=== PATIENT | female | born 1940 | race Caucasian/White ===

== ENCOUNTER 2017-07-13 18:37 | Observation (INO) | payer OTHER ==
[~2017-07-13] VITALS: Ht 162.6 cm; Wt 132.9 kg
[~2017-07-13 18:37] MED LIST: ALBUTEROL SULF8.5 GM IH; AMBIEN; ASPIR 8181 MG; ASPIRIN; ASPIRIN81 M1 PO; ATENOLOL; ATENOLOL50 MG PO; CARAFATE1 GM PO; CIPRO500 MG PO; CYCLOBENZAPRINE10 MG PO; CYMBALTA20 MG PO; DEXILANT; DEXILANT60 MG PO; DOXYCYCLINE HY100 MG PO; ENOXAPARIN40 MG/0.4 SQ; FENTANYL1 EAC1 TOP; GABAPENTIN100 MG PO; HEMOCYTE PLUS1 EACH PO; HYDROCHLOROTHIAZIDE; LEVEMIR; LISINOPRIL2.5 MG PO; LOVASTATIN; LOVASTATIN40 MG PO; METRONIDAZOLE500 MG PO; NATEGLINIDE120 MG; NEXIUM40 MG; NEXIUM40 MG PO; NIFEDICAL XL30 MG PO; NORCO; NORCO 10MG-325MG1 EA PO; NORCO 5-325 TA1 EACH PO; NOVOLOG MI100 UNIT/1 SQ; OMEPRAZOLE40 MG PO; OXYCODONE HCL5 MG PO; PAROXETINE HCL40 MG PO; PROAIR HFA INH8.5 GM INH; QVAR INH; REGLAN10 MG PO; ROBAXIN-750750 MG PO; STARLIX; STARLIX120 MG PO; TEMAZEPAM30 MG; ULTRAM 50MG50 MG PO; VITAMIN D1000 UNI1 PO; Z.0.PAXIL40 MG PO; ZOFRAN8 MG PO; ZOLPIDEM TARTRA10 MG PO
[2017-07-13] MEDS ORDERED: SODIUM CHLORIDE 0.9% 500ML 500 ML IV STA (19:27)
[2017-07-13] MEDS ORDERED: ONDANSETRON HCL INJ 2 MG/ML VIAL IV STA (19:27)
[2017-07-13] MEDS ORDERED: MORPHINE SULFATE 4 MG/ML SYR IV STA (19:27)
[2017-07-13] MEDS ORDERED: ACETAMINOPHEN 325 MG TAB PO ONE (19:30)
[2017-07-13] MEDS ORDERED: IBUPROFEN 600 MG TAB PO ONE (19:36)
[2017-07-13] MEDS ORDERED: DIATRIZOATE MEGL/DIATRIZOA SOD 30 ML BTL PO ONE ×2 (19:39→19:45)
[2017-07-13] MEDS ORDERED: MORPHINE SULFATE 2 MG/ML SYR IV ONE (19:45)
[2017-07-13 19:56] LABS: BASOPHILS % 0.4 % (0.0-1.0); EOSINOPHILS # (AUTO) 0.2 (0.0-0.4); EOSINOPHILS % 1.6 % (0.0-6.0); HEMATOCRIT 33.6 % (34.2-44.1); HEMOGLOBIN 11.5 g/dL (12.0-16.0); LYMPHOCYTES % 20.8 % (18.0-39.1); MEAN CORPUSCULAR HEMOGLOBIN 31.7 pg (28-32); MEAN CORPUSCULAR HGB CONC 34.2 g/dL (31-35); MEAN CORPUSCULAR VOLUME 92.6 fL (81-99); MONOCYTES # (AUTO) 0.8 (0.2-0.8); MONOCYTES % 8.7 % (4.4-11.3); NEUTROPHILS # (AUTO) 6.5 (2.1-6.9); PLATELET COUNT 185 x10e3/uL (140-360); RED BLOOD COUNT 3.63 x10e6/uL (3.6-5.1); RED CELL DISTRIBUTION WIDTH 14.9 % (11.7-14.4)
--- NOTE | 2017-07-13 20:11 | Diagnostic Imaging Report ---
EXAMINATION: CHEST SINGLE (PORTABLE) INDICATION: \S\fever \[id number] \S\1955 COMPARISON: Chest radiograph from 02/07/2013 and 12/08/2015 FINDINGS: AP view TUBES and LINES: Tubes and lines are unchanged. Neurostimulator overlying the mid thoracic spine. LUNGS: Lungs are well inflated. Improved bibasilar atelectasis. There is no evidence of pneumonia or pulmonary edema. PLEURA: No pleural effusion or pneumothorax. HEART AND MEDIASTINUM: Persistent widening of the mediastinum may be due to technique. BONES AND SOFT TISSUES: No acute osseous lesion. Soft tissues are unremarkable. UPPER ABDOMEN: No free air under the diaphragm. IMPRESSION: Improvement bibasilar atelectasis. No new consolidations. Persistent widening of the mediastinum. Recommend upright PA and lateral chest x-ray one feasible. Signed by: Dr. Malena Camarena M.D. on 07/13/2017 8:07 PM
[2017-07-13 20:13] LABS: ALANINE AMINOTRANSFERASE 11 IU/L (0-55); ALBUMIN 2.8 g/dL (3.5-5.0); ALBUMIN/GLOBULIN RATIO 0.7 (0.8-2.0); ALKALINE PHOSPHATASE 75 IU/L (40-150); AMYLASE 13 U/L (25-125); BLOOD UREA NITROGEN 17 mg/dL (7-26); BUN/CREATININE RATIO 21 (6-25); CALCIUM 8.7 mg/dL (8.4-10.2); CARBON DIOXIDE 30 mmol/L (22-29); CHLORIDE 98 mmol/L (98-107); CREATINE KINASE 38 IU/L (29-168); CREATININE, SERUM 0.82 mg/dL (0.57-1.11); EST GLOMERULAR FILTRATION RATE > 60 ML/MIN (60-); GLUCOSE 122 mg/dL (74-118); LIPASE 4 U/L (8-78); SODIUM 136 mmol/L (136-145)
[2017-07-13 20:16] LABS: B-TYPE NATRIURETIC PEPTIDE2 115.7 pg/mL (0-100)
[2017-07-13 20:44] LABS: BILIRUBIN,URINE NEGATIVE (NEGATIVE); CLARITY,URINE CLEAR (CLEAR); COLOR,URINE YELLOW (YELLOW); KETONES,URINE NEGATIVE (NEGATIVE); LEUKOCYTE ESTERASE ,URINE NEGATIVE (NEGATIVE); NITRITE,URINE NEGATIVE (NEGATIVE); PROTEIN,URINE DIPSTICK NEGATIVE (NEGATIVE); URINE UROBILINOGEN 0.2 mg/dL (0.2 - 1)
[2017-07-13 20:59] LABS: EPITHELIAL CELLS,URINE FEW /LPF
--- NOTE | 2017-07-13 21:19 | Diagnostic Imaging Report ---
EXAM: CT ABDOMEN AND PELVIS with IV CONTRAST DATE: 07/13/2017 7:27 PM Time stamp on Exam: 2043 hours INDICATION: Back \E\Abdominal pain COMPARISON: CT of the abdomen and pelvis April 06, 2015 TECHNIQUE: The abdomen and pelvis were scanned using a multidetector helical scanner. Coronal and sagittal reformations were obtained. Routine protocol performed. IV Contrast: 100 cc at 7370 Oral Contrast: Gastrografin CTDIvol has been reviewed. It is below the limits set by the Radiation Protocol Committee (RPC). FINDINGS: LOWER THORAX: No consolidations LIVER: No masses BILIARY: Cholecystectomy. Mild dilation of the bile ducts, likely secondary to reservoir effect and age. SPLEEN: No masses PANCREAS: Pancreatic atrophy. ADRENALS: No nodules KIDNEYS: Symmetric perfusion. No enhancing masses. No hydronephrosis. Simple cyst measuring 2 cm superior pole of the right kidney. Simple cyst measuring 1.7 cm in the inferior pole of the right kidney. GI TRACT: Small hiatal hernia. Surgical sutures around the proximal stomach. Sigmoid colon diverticulosis. No bowel obstruction. No evidence of appendicitis. VESSELS: Moderate atherosclerotic changes of the abdominal aorta and branches without aneurysm. PERITONEUM/RETROPERITONEUM: No free air or fluid LYMPH NODES: No lymphadenopathy REPRODUCTIVE ORGANS: The uterus and ovaries are not visualized. BLADDER: Unremarkable SOFT TISSUES: Surgical changes of ventral hernia repair without evidence of recurrent hernia. Partially visualized intrathecal device with generator in the left buttock. BONES: No suspicious bone lesions. Advanced degenerative changes of the thoracolumbar spine. IMPRESSION: Moderate sliding hiatal hernia. Otherwise, no CT findings to explain patient's symptoms. Signed by: Dr. Nicole Estrada M.D. on 07/13/2017 9:15 PM
[2017-07-13] MEDS ORDERED: TEMAZEPAM15 MG PO (22:21)
[2017-07-13] MEDS ORDERED: OMEPRAZOLE40 MG PO (22:22)
[2017-07-13] MEDS ORDERED: DEXTROSE 50% SYRINGE 50 ML IV PRN ×2 (22:30)
[2017-07-13] MEDS: SODIUM CHLORIDE 0.9% 1000ML 1,000 ML IV SCH (22:31)
--- OUTSIDE RECORDS SUMMARY | 2017-07-13 22:34 | XMS REPORT ---
Author Author [facility] Address Unknown Phone Unavailable Care Team Providers Care [employer] Name Role Phone UGO ABAD Unavailable Unavailable Problems This patient has no known problems. Allergies, Adverse Reactions, Alerts This patient has no known allergies or adverse reactions. Medications This patient has no known medications. Results Test Description Test Time Test Comments Text Results Atomic Results Result Comments CHEST SINGLE (PORTABLE) [address] [address] Patient Name: ANNIKA OROZCO MR #: [id number] : 1940 Age/Sex: 76/F Req #: [id number] Adm Physician: Ordered by: UGO ABAD MD Report #: [id number] Location: ER Room/Bed: Procedure: [id number] DX/CHEST SINGLE (PORTABLE) Exam Date: 07/13/17 Exam Time: 1954 REPORT STATUS: Signed EXAMINATION: CHEST SINGLE (PORTABLE) INDICATION: COMPARISON: Chest radiograph from 02/07/2013 and 12/08/2015 FINDINGS: AP view TUBES and LINES: Tubes and lines are unchanged. Neurostimulator overlying the mid thoracic spine. LUNGS: Lungs are well inflated. Improved bibasilar atelectasis. There is no evidence of pneumonia or pulmonary edema. PLEURA: No pleural effusion or pneumothorax. HEART AND MEDIASTINUM: Persistent widening of the mediastinum may be due to technique. BONES AND SOFT TISSUES: No acute osseous lesion. Soft tissues are unremarkable. UPPER ABDOMEN: No free air under the diaphragm. IMPRESSION: Improvement bibasilar atelectasis. No new consolidations. Persistent widening of the mediastinum. Recommend upright PA and lateral chest x-ray one feasible. Signed by: Dr. Chantell Pretty M.D. on 07/13/2017 8:07 PM Dictated By: CHANTELL PRETTY MD 06 Transcribed By: LISANDRO on 07/13/172006 COPY TO: UGO ABAD MD CT ABDOMEN/PELVIS W [place] [address] Patient Name: ANNIKA OROZCO MR #: [id number] : 1940 Age/Sex: 76/F Req #: [id number] Adm Physician: Ordered by: UGO ABAD MD Report #: [id number] Location: ER Room/Bed: Procedure: [id number] CT/CT ABDOMEN/PELVIS W Exam Date: 07/13/17 Exam Time: 2039 REPORT STATUS: Signed EXAM: CT ABDOMEN AND PELVIS with IV CONTRAST DATE: 07/13/2017 7:27 PM Time stamp on Exam: 2043 hours INDICATION: Back E Abdominal pain COMPARISON: CT of the abdomen and pelvis April 06, 2015 TECHNIQUE: The abdomen and pelvis were scanned using a multidetector helical scanner. Coronal and sagittal reformations were obtained. Routine protocol performed. IV Contrast: 100 cc at 7370 Oral Contrast: Gastrografin CTDIvol has been reviewed. It is below the limits set by the Radiation Protocol Committee (RPC). FINDINGS: LOWER THORAX: No consolidations LIVER: No masses BILIARY: Cholecystectomy. Mild dilation of the bile ducts, likely secondary to reservoir effect and age. SPLEEN : No masses PANCREAS: Pancreatic atrophy. ADRENALS: No nodules KIDNEYS : Symmetric perfusion. No enhancing masses. No hydronephrosis. Simple cyst measuring 2 cm superior pole of the right kidney. Simple cyst measuring 1.7 cm in the inferior pole of the right kidney. GI TRACT: Small hiatal hernia. Surgical sutures around the proximal stomach. Sigmoid colon diverticulosis. No bowel obstruction. No evidence of appendicitis. VESSELS: Moderate atherosclerotic changes of the abdominal aorta and branches without aneurysm. PERITONEUM/RETROPERITONEUM: No free air or fluid LYMPH NODES: No lymphadenopathy REPRODUCTIVE ORGANS: The uterus and ovaries are not visualized. BLADDER: Unremarkable SOFT TISSUES: Surgical changes of ventral hernia repair without evidence of recurrent hernia. Partially visualized intrathecal device with generator in the left buttock. BONES : No suspicious bone lesions. Advanced degenerative changes of the thoracolumbar spine. IMPRESSION: Moderate sliding hiatal hernia. Otherwise, no CT findings to explain patient's symptoms. Signed by: Dr. Silvio Estrada M.D. on 07/13/2017 9:15 PM Dictated By: SILVIO ESTRADA MD 14 Transcribed By: LISANDRO on 07/13/172114 COPY TO: UGO ABAD MD
[2017-07-13] MEDS ORDERED: IOPAMIDOL 370 MG/ML 200 ML INFUS..BTL INJ ONE (22:53)
[2017-07-13] MEDS ORDERED: SODIUM CHLORIDE 0.9% 50ML 50 ML ONE (22:53)
[2017-07-13 23:11] VITALS: BP 129/60
[2017-07-14] VITALS (9 sets, daily range): BP systolic 128–177; BP diastolic 58–73
[2017-07-14] MEDS: ONDANSETRON HCL INJ 2 MG/ML VIAL IV PRN ×5 (00:03→21:02)
[2017-07-14] MEDS: MORPHINE SULFATE 2 MG/ML SYR IV PRN ×5 (00:03→21:02)
[2017-07-14] MEDS: INSULIN REGULAR, HUMAN 100 UNIT/1 ML 3ML VIAL SQ SCH ×4 (07:30→21:01)
[2017-07-14] MEDS: SODIUM CHLORIDE 0.9% 1000ML 1,000 ML IV SCH ×2 (07:47→17:00)
[2017-07-14] MEDS ORDERED: NATEGLINIDE 120 MG TAB PO SCH (11:30)
[2017-07-14] MEDS ORDERED: METHOCARBAMOL 750 MG TAB PO PRN (14:00)
[2017-07-14] MEDS ORDERED: METHOCARBAMOL 750 MG TAB PO SCH (14:00)
[2017-07-14] MEDS ORDERED: MELATONIN 5 MG TABLET PO PRN (14:00)
[2017-07-14] MEDS: LIDOCAINE 5% PATCH TP SCH (14:12)
[2017-07-14] MEDS: PANTOPRAZOLE SOD 40 MG TABEC PO SCH (14:24)
--- NOTE | 2017-07-14 15:23 | History and Physical ---
REASON FOR ADMISSION: Abdominal pain. HPI: This is a 76-year-old female, morbidly obese, with chronic back pain and chronic abdominal pain in which she sees appropriate consultants, pain management and GI respectively, comes in to the ED with complaints of abdominal pain. Patient reports that she has been having sharp epigastric pain ongoing for the last several days. She does report to me that this has been ongoing for the last 1 year. She does see an outpatient GI specialist. Her imaging studies here were found to be negative. Lab findings were found to be negative as well. Patient tolerated diet well this afternoon with no other issues. In relation to her back pain, she reports that this has been ongoing and sees a pain specialist as an outpatient and also gets injections. She does report that they stopped giving her injections due to the reason that the insurance is not paying. Patient is seen and evaluated at bedside on the medical floor, currently doing well, very comfortable on examination. REVIEW OF SYSTEMS: Pertinent positive: Back pain, abdominal pain. Pertinent negative: Denies any chest pain, palpitation, nausea, vomiting, diarrhea, dysuria, hematuria, frequency, urgency, lightheadedness, dizziness, headache, shortness of breath or any other complaints. The rest of the 14-point review of systems have been reviewed with the patient and are negative. ALLERGIES: PENICILLIN, TYLENOL, CODEINE, GABAPENTIN, SIMVASTATIN, TRAMADOL. PAST MEDICAL HISTORY: Diabetes type 2, CKD, obesity, hypertension, hyperlipidemia, major depression with anxiety, insomnia, chronic lower back pain which she sees pain management. SURGICAL HISTORY: Abdominal hernia repair, multiple abdominal wall hernias, hysterectomy, cholecystectomy, appendectomy, lower back surgery, abdominal wall abscess. FAMILY HISTORY: Hypertension, diabetes. SOCIAL HISTORY: No drugs. No alcohol. Does not smoke. Lives with her 2 children. PHYSICAL EXAMINATION: VITAL SIGNS: Temperature is 98.2, pulse 85, respiratory rate is 18, blood pressure 148/67, pulse ox 96% on room air. GENERAL: Not in acute distress. Alert and oriented times 3. Cooperative on exam. HEENT: Head: Normocephalic, atraumatic. Eyes: Pupils equal, round and reactive to light bilaterally. Extraocular movements are intact bilaterally. Throat: No evidence of any erythema or exudates in the posterior oropharynx. Has poor dentition. NECK: Supple with good range of motion. PULMONARY: Clear to auscultation bilaterally. No wheezing, no rales, no rhonchi. No crackles appreciated. CARDIOVASCULAR: Positive S1, S2. No murmurs, rubs, or gallops appreciated. ABDOMEN: Soft, nondistended, nontender to palpation. Bowel sounds present. MUSCULOSKELETAL: Strength is 5/5 throughout. No evidence of any musculoskeletal deficit on examination. No weakness appreciated. NEUROLOGIC: Cranial nerves II through XII are grossly intact. No evidence of any neurologic deficit on exam. SKIN: Intact. Warm to touch. Good capillary refill. PSYCHIATRIC: Normal affect and mood. EXTREMITIES: No edema. Good range of motion throughout. LAB FINDINGS: Show a white count 9.5, hemoglobin 11.5, hematocrit 33.6 and platelets of 185. Chemistry: Sodium 136, potassium 4, chloride 98, bicarb 30, anion gap 12, BUN 17, creatinine 0.8, glucose 122. Her -hour glucose 116, lactic acid 10 which was normal. Her LFTs were normal. Her lipase was normal. Amylase normal. Albumin is 2.8. BNP was 115. Troponin negative. Urinalysis negative. Microbiology, none. IMAGING STUDIES: CT abdomen and pelvis with IV contrast showed just a moderate sliding hiatal hernia but otherwise negative findings. Chest x-ray, no new consolidation. Otherwise negative chest x-ray. IMPRESSION: 1. Chronic abdominal pain, currently much improved, tolerating diet. 2. Chronic lower back pain. 3. Type 2 diabetes. 4. Chronic kidney disease. 5. Morbidly obese. 6. Hypertension. PLAN: At this time continue same home medications. Continue with same pain control. CT imaging was negative. She does have a moderate hiatal hernia but likely not causing any issues at this time. Her abdominal pain is very nonspecific. I feel like her underlying back pain is chronic leading to her abdominal pain which currently she is doing well. She is tolerating diet well with no nausea or vomiting. Will add tramadol for pain which she prefers instead. Will get PT and OT to evaluate her. Continue with regular diet for now. Decrease her IV fluids to 50 mL per hour. I am going to add lidocaine patch to her back to see if this will help with resolve. She was receiving injections in the back but due to the fact that the insurance was not paying, she has not received any injections. Otherwise, monitor overnight. Job#: [id number] DG
[2017-07-14] MEDS ORDERED: SUCRALFATE 1 GM/10 ML SUSP NG SCH (16:30)
[2017-07-14] MEDS: SUCRALFATE 1 GM TAB PO SCH ×2 (17:00→20:44)
[2017-07-14] MEDS: TRAMADOL HCL 50 MG TAB PO PRN (17:20)
[2017-07-14] MEDS ORDERED: GABAPENTIN 100 MG CAP PO SCH (21:00)
[2017-07-15] MEDS: MORPHINE SULFATE 2 MG/ML SYR IV PRN (01:21)
[2017-07-15] MEDS: ONDANSETRON HCL INJ 2 MG/ML VIAL IV PRN (01:21)
[2017-07-15 04:00] VITALS: BP 161/72
[2017-07-15 06:16] LABS: BASOPHILS % 0.4 % (0.0-1.0); EOSINOPHILS # (AUTO) 0.2 (0.0-0.4); EOSINOPHILS % 2.5 % (0.0-6.0); HEMATOCRIT 34.7 % (34.2-44.1); HEMOGLOBIN 11.5 g/dL (12.0-16.0); LYMPHOCYTES # (AUTO) 2.4 (1.0-3.2); LYMPHOCYTES % 25.9 % (18.0-39.1); MEAN CORPUSCULAR HEMOGLOBIN 31.3 pg (28-32); MEAN CORPUSCULAR HGB CONC 33.1 g/dL (31-35); MEAN CORPUSCULAR VOLUME 94.6 fL (81-99); MONOCYTES # (AUTO) 0.9 (0.2-0.8); MONOCYTES % 9.1 % (4.4-11.3); NEUTROPHILS # (AUTO) 5.7 (2.1-6.9); NEUTROPHILS % 61.4 % (38.7-80.0); PLATELET COUNT 184 x10e3/uL (140-360); RED BLOOD COUNT 3.67 x10e6/uL (3.6-5.1); RED CELL DISTRIBUTION WIDTH 14.9 % (11.7-14.4)
[2017-07-15 06:40] LABS: ANION GAP 12.6 mmol/L (8-16); BLOOD UREA NITROGEN 10 mg/dL (7-26); BUN/CREATININE RATIO 12 (6-25); CARBON DIOXIDE 28 mmol/L (22-29); CHLORIDE 103 mmol/L (98-107); CREATININE, SERUM 0.81 mg/dL (0.57-1.11); EST GLOMERULAR FILTRATION RATE > 60 ML/MIN (60-); GLUCOSE 116 mg/dL (74-118); POTASSIUM 3.6 mmol/L (3.5-5.1); SODIUM 140 mmol/L (136-145)
[2017-07-15] MEDS: SUCRALFATE 1 GM TAB PO SCH ×4 (07:30→16:30)
[2017-07-15 08:07] VITALS: BP 144/64
[2017-07-15] MEDS: PANTOPRAZOLE SOD 40 MG TABEC PO SCH (08:07)
[2017-07-15] MEDS: INSULIN REGULAR, HUMAN 100 UNIT/1 ML 3ML VIAL SQ SCH ×3 (08:54→17:05)
[2017-07-15 08:55] VITALS: BP 144/64
[2017-07-15] MEDS ORDERED: CHOLECALCIFEROL 1,000 UNIT TAB PO SCH (09:00)
[2017-07-15] MEDS ORDERED: LIDOCAINE 5% PATCH TP SCH (09:00)
[2017-07-15] MEDS ORDERED: ATENOLOL 50 MG TAB PO SCH (09:00)
[2017-07-15] MEDS ORDERED: PAROXETINE HCL 20 MG PO SCH (09:00)
[2017-07-15] MEDS ORDERED: ASPIRIN 81 MG CHEW TAB PO SCH (09:00)
[2017-07-15] MEDS ORDERED: LISINOPRIL 2.5 MG TAB PO SCH (09:00)
[2017-07-15] MEDS ORDERED: PAROXETINE HCL 20 MG TAB PO SCH (09:00)
[2017-07-15] MEDS: SODIUM CHLORIDE 0.9% 1000ML 1,000 ML IV SCH (10:37)
[2017-07-15] MEDS: LIDOCAINE 5% PATCH TP SCH (10:37)
[2017-07-15] MEDS ORDERED: NIFEDIPINE CR 30 MG TAB PO SCH (12:00)
[2017-07-15 12:10] VITALS: BP 197/90
[2017-07-15] MEDS: TRAMADOL HCL 50 MG TAB PO PRN (14:42)
[2017-07-15] MEDS ORDERED: HYDRALAZINE HCL 20 MG/ML VIAL IV SCH (16:15)
[2017-07-15 16:26] VITALS: BP 178/77
[2017-07-15 17:05] VITALS: BP 159/79
--- NOTE | 2017-07-15 18:53 | Discharge Summary ---
DISCHARGE DIAGNOSIS: 1. Chronic abdominal pain, very nonspecific, now resolved. 2. Chronic back pain in which she follows up with a pain specialist for years now. 3. Type 2 diabetes. 4. Chronic kidney disease. 5. Morbidly obese. 6. Hypertension. CONSULTANTS: None. VITAL SIGNS: Temperature is 98, pulse 68, respiratory rate is 18, pulse ox 97% on room air. LAB FINDINGS: Show white count 9.3, hemoglobin is 11.5, hematocrit is 34.7, MCV is 94, platelets of 184. Chemistry: Sodium 140, potassium 3.6, chloride 103, bicarb 20, anion gap of 12, BUN is 10, creatinine is 0.8, glucose 116, calcium is 9. Total bilirubin is 0.4. Her LFTs were normal. Her troponins were negative. Her albumin was 2.8. Her lipase was 4. Her amylase was 13. AST is 12. ALT is 11. Urinalysis negative. MICROBIOLOGY: None. IMAGING STUDIES: CT abdomen and pelvis showed a small hiatal hernia but otherwise no acute findings. Chest x-ray, no new consolidations, otherwise negative chest x-ray. HOSPITAL COURSE: This is a 76-year-old female, morbidly obese, chronic back pain. Comes in with nonspecific abdominal pain. Imaging studies were performed with CT abdomen and pelvis that showed a small hiatal hernia. Patient was tolerating diet with no complaints. She had no nausea, no vomiting. Patient tolerated diet, regular solid food, with no issues. Her abdominal pain resolved prior to discharge home. In relation to her chronic back pain, this has been ongoing for more than 4 years now. We added some lidocaine patches with much improvement. Patient's back pain is back to baseline with no other issues. Patient's blood pressure was slightly elevated while in the hospital and discharged on increased dose of lisinopril at 10 mg daily as well as nifedipine XL at 30 mg daily. On discharge her vital signs were stable, labs reviewed and stable. Patient seen, evaluated and examined thoroughly on the day of discharge. No other complaints. Patient verbalized understanding and agrees with plan of care to follow up accordingly as an outpatient with her primary care physician in 1 week. DISCHARGE MEDICATIONS: See med reconciliation form including nifedipine XL 30 mg daily, lisinopril 10 mg daily. DISPOSITION: Home. CONDITION: Stable. DIET: Heart-healthy. FOLLOWUP: With her primary care physician in 1 week for further management and care. In the event of any worsening symptoms, patient advised to come back to the ED for further evaluation. Discharge summary took greater than 35 minutes. BERTRAND KENNEY MD Job#: [id number] EV
== END 2017-07-15 17:50 | disposition home or self-care (01) ==
LOC: ER 18:37 → IMCU 22:30
PROVIDERS: ADMIT Internal Medicine; ATTEND Internal Medicine
DX: R10.84 Generalized abdominal pain (principal); E66.01 Morbid (severe) obesity due to excess calories; Z68.43 Body mass index [BMI] 50.0-59.9, adult; G89.29 Other chronic pain; Z88.6 Allergy status to analgesic agent; Z88.5 Allergy status to narcotic agent; Z88.0 Allergy status to penicillin; Z88.8 Allergy status to other drugs, medicaments and biological substances; E11.22 Type 2 diabetes mellitus with diabetic chronic kidney disease; N18.9 Chronic kidney disease, unspecified; I12.9 Hypertensive chronic kidney disease with stage 1 through stage 4 chronic kidney disease, or unspecified chronic kidney disease; K44.9 Diaphragmatic hernia without obstruction or gangrene
CPT/HCPCS: 36415 ×3; 71045; 74177; 80048; 80053; 81001; 82150; 82550; 82553; 82948 ×2; 83605; 83690; 83880; 84484; 85025 ×2; 93005; 97116; 97161; 99284; G0378 ×3; G8978; G8979; G8980; J0360; J2270 ×3; J2405 ×3; J7030 ×3; J7040; Q9967

== ENCOUNTER → 2017-08-08 | Outpatient (CLI) | payer OTHER ==
[~2017-08-08] MED LIST changes: +TEMAZEPAM15 MG PO
--- NOTE | 2017-08-08 19:23 | Diagnostic Imaging Report ---
Solid-phase gastric emptying study Reason for examination: 76 F with dysphagia The protocol used for this study is based on the Consensus Recommendations for Gastric Scintigraphy by the [employer] and the Society of Nuclear Medicine. Clinical information: The patient is diabetic; blood glucose this morning is 156 mg/dL. The patient has not had previous gastrointestinal surgery other than cholecystectomy in 1994.. Patient could not recall name of medication she takes for gastric motility. The patient has been fasting for at least 6 hours prior to this exam. Radiopharmaceutical: Tc-99m sulfur colloid 1 mCi Report: The radiopharmaceutical was added to 1/2 cup egg whites that were then prepared and served with 2 pieces of white bread toasted, 30 grams of jam and 4 ounces of water. The patient took the meal orally without difficulty. Images were obtained of the abdomen in the anterior and posterior projections at 10 minutes post the meal and at 1and 2 hours. Uptake was determined from the geometric mean of the anterior and posterior counts and the counts were corrected for decay of the radiolabel. The percent gastric retention of the labeled meal at: 1 hour was 27% (normal 30-90%) 2 hours was 19% (normal <60%; if <35%, study is normal) 3-hour and 4-hour measurements were not obtained because the gastric retention was less than 35% at 2 hours. Impression: The pattern of gastric emptying is rapid through the first hour and normal after 2 hours. Scan findings do not support the clinical diagnosis of gastroparesis. Signed by: Dr. Dee Kohler M.D. on 08/08/2017 7:19 PM
== END ==
LOC: NM 09:22
PROVIDERS: ATTEND Internal Medicine Gastroenterology
DX: R13.10 Dysphagia, unspecified (principal); E11.9 Type 2 diabetes mellitus without complications; I10 Essential (primary) hypertension; E66.9 Obesity, unspecified
CPT/HCPCS: 36415; 78264; 82948; A9541

== ENCOUNTER → 2017-08-10 | Day surgery (SDC) | payer OTHER ==
[~2017-08-10] MED LIST changes: +FENTANYL CITRATE/PF 100MCG/2 ML INJ ONE; +MIDAZOLAM HCL 2 MG/2 ML VIAL ONE; +PROPOFOL IV EMULSION 10 MG/ML 20 ML VIAL ONE
--- OUTSIDE RECORDS SUMMARY | 2017-08-10 07:36 | XMS REPORT | Continuity of Care Document ---
Author Author [facility] Organization [facility] Address [address] [place] [address] Phone Unavailable Care Team Providers Care Machine Stuffer Name Role Phone KEV CRANDALL MD PCP Insurance Providers Guarantor Annika Colunga Address [address] [place] [address] Email NONE Payer [employer] Policy Number [id number] Subscriber's Name Annika Colunga Relationship 18 Self / Same As Patient Group Number [id number] Group Name [employer] - [employer] Advantage Divis Effective Date 17 Advance Directives Directive Response Recorded Date/Time Does the patient have an advance directive? No 07/13/17 11:08pm If yes, is advance directive on file with [facility]? No 07/13/17 11:08pm If not on file with [facility] will patient provide a copy? Yes 07/13/17 11:08pm Do you have a Directive to Physician? No 07/13/17 7:24pm Do you have a Medical Power of Machine Attendant? No 07/13/17 7:24pm Do you have an out of hospital Do Not Resuscitate Order? No 07/13/17 7:24pm Do you have any special needs we should be aware of? No 07/13/17 7:24pm Do you have a support person here with you today? Yes 07/13/17 7:24pm Did patient receive Notice of Privacy Practices? Yes 07/13/17 7:24pm Did patient receive patient rights and responsibilities? Yes 07/13/17 7:24pm Problems Medical Problem Onset Date Status Confusion 12/08/2015 Acute Seroma, infected, postoperative 05/01/2015 Acute Seroma, postoperative 05/01/2015 Acute TIA (transient ischemic attack) 05/08/2015 Acute UTI (urinary tract infection) 12/08/2015 Acute Wound infection 05/01/2015 Acute Medications Current Home Medications Medication Dose Units Route Directions Days Qty Instructions Start Date Aspirin (Aspir 81) 81 Mg Tablet.dr Daily Atenolol 50 Mg Tablet 50 Mg Oral Daily Cholecalciferol (Vitamin D3) (Vitamin D) 1,000 Unit Tablet 5,000 Unit Oral Daily 30 Tab Gabapentin 100 Mg Capsule 100 Mg Oral Bedtime Insuln Asp Prt/Insulin Aspart (Novolog Mix 70-30 Flexpen Syrn) 100 Unit/1 Ml Insuln.pen 100 Unit Sub-Q Three Times A Day Lisinopril 2.5 Mg Tablet 5 Mg Oral Daily 30 Tab Methocarbamol (Robaxin-750) 750 Mg Tablet 750 Mg Oral Every 4 Hours as needed for Pain Omeprazole 40 Mg Capsule.dr 40 Mg Oral Daily Oxycodone Hcl 5 Mg Tablet 5 Mg Oral Twice A Day as needed for Pain Paroxetine Hcl 40 Mg Tablet 20 Mg Oral Daily Temazepam 15 Mg Capsule 15 Mg Oral Bedtime as needed for Insomnia Past Home Medications Medication Directions Ordered Status Albuterol Sulfate (Proair Hfa Inhaler*) 8.5 Gm Inh, Inhalation Every 4 Hours as needed Discontinued Ambien , Bedtime Discontinued Aspirin 81 Mg Tablet, 81 Mg Oral Daily Discontinued Aspirin , Daily Discontinued Atenolol , Daily Discontinued Ciprofloxacin Hcl (Cipro) 500 Mg Tablet, 500 Mg Oral Every 12 Hours Discontinued Cyclobenzaprine Hcl 10 Mg Tablet, 10 Mg Oral Three Times A Day Discontinued Dexilant , Daily Discontinued Duloxetine Hcl (Cymbalta) 20 Mg Capcr, 60 Mg Oral Daily Discontinued Enoxaparin Sodium 40 Mg/0.4 Ml Disp.syrin, 40 Mg Sub-Q Rt Daily Discontinued Esomeprazole Magnesium (Nexium) 40 Mg Capsule.dr, Daily Discontinued Esomeprazole Magnesium (Nexium) 40 Mg Capsule.dr, 40 Mg Oral Daily as needed Discontinued Fe Fumarate/Fa/Mv, Min Comb#15 (Hemocyte Plus Capsule) 1 Each Capsule, 1 Tab Oral Daily Discontinued Fentanyl 1 Each Patch.td72, 12 Mcg Topically Q72 Hrs Discontinued Hydrochlorothiazide , Daily Discontinued Hydrocodone Bit/Acetaminophen (Burton 5-325 Tablet) 1 Each Tablet, 1 Each Oral Every 4 Hours 12/21/14 Discontinued Levemir , Bedtime Discontinued Lovastatin 40 Mg Tablet, 40 Mg Oral Twice A Day Discontinued Lovastatin , Twice A Day Discontinued Metronidazole 500 Mg Tablet, 500 Mg Oral Three Times A Day Discontinued Nateglinide (Starlix) 120 Mg Tab, 120 Mg Oral Three Times A Day Discontinued Nifedipine (Nifedical Xl) 30 Mg Tab.er.24, 60 Mg Oral Daily Discontinued Burton , Three Times A Day Discontinued Omeprazole 40 Mg Capsule.dr, 40 Mg Oral Daily Discontinued Ondansetron Hcl (Zofran) 8 Mg Tablet, 8 Mg Oral Every 8 Hours as needed for Nausea 04/10/15 Discontinued Paroxetine Hcl (Paxil) 40 Mg Tablet, 40 Mg Oral Daily Discontinued Qvar , 80 Mcg Inhalation Twice A Day Discontinued Starlix , Three Times A Day Discontinued Sucralfate (Carafate) 1 Gm Tablet, 1 Gm Oral Before Meals And At Bedtime 11/16 Discontinued Temazepam 30 Mg Capsule, Qhs Discontinued Tramadol Hcl (Ultram 50MG*) 50 Mg Tab, 50 Mg Oral As Needed Discontinued Social History Social History Problem Response Recorded Date/Time Onset Date Status Hx Psychiatric Problems No 07/13/2017 11:08pm Not Applicable Not Applicable Hx Eating Disorder No 07/13/2017 11:08pm Not Applicable Not Applicable Hx Substance Use Disorder No 07/13/2017 11:08pm Not Applicable Not Applicable Hx Depression Yes 07/13/2017 11:08pm Not Applicable Not Applicable Hx Alcohol Use No 07/13/2017 11:08pm Not Applicable Not Applicable Hx Substance Use Treatment No 07/13/2017 11:08pm Not Applicable Not Applicable Hx Physical Abuse No 07/13/2017 11:08pm Not Applicable Not Applicable Smoking Status Start Date Stop Date Never Smoker Hospital Discharge Instructions No hospital discharge instruction information available. Plan of Care Discharge Date 07/15/17 5:50pm Disposition HOME, SELF-CARE Instructions/Education Provided Hiatal Hernia Prescriptions See Medication Section Additional Instructions/Education FOLLOW UP WITH PCP IN 1 WEEK Functional Status Query Response Date Recorded FUNCTIONAL STATUS ` July 14, 2017 3:40pm Assistive Devices Rolling Walker July 13, 2017 11:11pm Ambulation Ability Standby Assistance 1 person assist July 13, 2017 11:11pm Toileting Ability Independent July 13, 2017 11:11pm Allergies, Adverse Reactions, Alerts Allergen Type Severity Reaction Status Last Updated Penicillin Allergy Mild RASH Active 07/13/17 Codeine Allergy Mild N/V Active 07/13/17 Acetaminophen Allergy Unknown HALLUCINATIONS Active 07/13/17 Simvastatin Allergy Unknown Active 07/13/17 Tramadol Allergy Unknown CRAWLING SENSATIONS Active 07/14/17 Gabapentin Allergy Unknown DIZZINESS Active 07/14/17 Immunizations No immunization information available. Vital Signs Acute Vital Signs Vital Response Date/Time Temperature (Fahrenheit) 97.7 degrees F (97.6 - 99.5) 07/15/2017 4:26pm Pulse Pulse Rate (adult) 65 bpm (60 - 90) 07/15/2017 4:26pm Respiratory Rate 18 bpm (12 - 24) 07/15/2017 4:26pm Blood Pressure 159/79 mm Hg 07/15/2017 5:05pm Height 5 ft 4 in 07/13/2017 6:40pm Weight 293 lb 07/13/2017 6:40pm Body Mass Index 50.3 kg/m^2 07/13/2017 11:08pm Results Laboratory Results Test Name Result Units Flags Reference Collection Date/Time Result Date/ Time Comments White Blood Count 9.34 x10e3/uL 4.8-10.8 07/15/2017 5:30am 07/15/2017 6 :31am Red Blood Count 3.67 x10e6/uL 3.6-5.1 07/15/2017 5:30am 07/15/2017 6: 31am Hemoglobin 11.5 g/dL L 12.0-16.0 07/15/2017 5:30am 07/15/2017 6:31am Hematocrit 34.7 % 34.2-44.1 07/15/2017 5:07/15/2017 6:31am Mean Corpuscular Volume 94.6 fL 81-99 07/15/2017 5:07/15/2017 6: 31am Mean Corpuscular Hemoglobin 31.3 pg 28-32 07/15/2017 5:07/15/2017 6:31am Mean Corpuscular Hemoglobin Concent 33.1 g/dL 31-35 07/15/2017 5:07/15/2017 6:31am Red Cell Distribution Width 14.9 % H 11.7-14.4 07/15/2017 5:2017 6:31am Platelet Count 184 x10e3/uL 140-360 07/15/2017 5:07/15/2017 6: 31am Neutrophils (%) (Auto) 61.4 % 38.7-80.0 07/15/2017 5:07/15/2017 6: 31am Lymphocytes (%) (Auto) 25.9 % 18.0-39.1 07/15/2017 5:07/15/2017 6: 31am Monocytes (%) (Auto) 9.1 % 4.4-11.3 07/15/2017 5:07/15/2017 6: 31am Eosinophils (%) (Auto) 2.5 % 0.0-6.0 07/15/2017 5:07/15/2017 6: 31am Basophils (%) (Auto) 0.4 % 0.0-1.0 07/15/2017 5:07/15/2017 6:31am IM GRANULOCYTES % 0.7 % 0.0-1.0 07/15/2017 5:07/15/2017 6:31am Neutrophils # (Auto) 5.7 2.1-6.9 07/15/2017 5:07/15/2017 6:31am Lymphocytes # (Auto) 2.4 1.0-3.2 07/15/2017 5:07/15/2017 6:31am Monocytes # (Auto) 0.9 H 0.2-0.8 07/15/2017 5:07/15/2017 6:31am Eosinophils # (Auto) 0.2 0.0-0.4 07/15/2017 5:30am 07/15/2017 6:31am Basophils # (Auto) 0.0 0.0-0.1 07/15/2017 5:30am 07/15/2017 6:31am Absolute Immature Granulocyte (auto 0.07 x10e3/uL 0-0.1 07/15/2017 5: 30am 07/15/2017 6:31am Urine Color YELLOW YELLOW 07/13/2017 8:30pm 07/13/2017 8:44pm Urine Clarity CLEAR CLEAR 07/13/2017 8:30pm 07/13/2017 8:44pm Urine Specific [place] 1.020 1.010-1.025 07/13/2017 8:30pm 2017 8:44pm Urine pH 7 5 - 7 07/13/2017 8:30pm 07/13/2017 8:44pm Urine Leukocyte Esterase NEGATIVE NEGATIVE 07/13/2017 8:30pm 2017 8:44pm Urine Nitrite NEGATIVE NEGATIVE 07/13/2017 8:30pm 07/13/2017 8:44pm Urine Protein NEGATIVE NEGATIVE 07/13/2017 8:30pm 07/13/2017 8:44pm Urine Glucose (UA) NEGATIVE NEGATIVE 07/13/2017 8:30pm 07/13/2017 8: 44pm Urine Ketones NEGATIVE NEGATIVE 07/13/2017 8:30pm 07/13/2017 8:44pm Urine Urobilinogen 0.2 mg/dL 0.2 - 1 07/13/2017 8:30pm 07/13/2017 8: 44pm Urine Bilirubin NEGATIVE NEGATIVE 07/13/2017 8:30pm 07/13/2017 8: 44pm Urine Blood NEGATIVE NEGATIVE 07/13/2017 8:30pm 07/13/2017 8:44pm Urine WBC NONE /HPF 0-5 07/13/2017 8:30pm 07/13/2017 8:59pm Urine RBC NONE /HPF 0-5 07/13/2017 8:30pm 07/13/2017 8:59pm Urine Bacteria NONE /HPF NONE 07/13/2017 8:30pm 07/13/2017 8:59pm Urine Epithelial Cells FEW /LPF NONE 07/13/2017 8:30pm 07/13/2017 8: 59pm Sodium Level 140 mmol/L 136-145 07/15/2017 5:36am 07/15/2017 7:07am Potassium Level 3.6 mmol/L 3.5-5.1 07/15/2017 5:36am 07/15/2017 7:07am Chloride Level 103 mmol/L 98-107 07/15/2017 5:36am 07/15/2017 7:07am Carbon Dioxide Level 28 mmol/L 22-29 07/15/2017 5:36am 07/15/2017 7: 07am Anion Gap 12.6 mmol/L 8-16 07/15/2017 5:36am 07/15/2017 7:07am Blood Urea Nitrogen 10 mg/dL 7-07/15/2017 5:36am 07/15/2017 7:07am Creatinine 0.81 mg/dL 0.57-1.11 07/15/2017 5:36am 07/15/2017 7:07am BUN/Creatinine Ratio 12 6-07/15/2017 5:36am 07/15/2017 7:07am Estimat Glomerular Filtration Rate > 60 ML/MIN 60- 07/15/2017 5:36am 7:07am Ranges were taken from the National Kidney Disease Education Program and the National Kid[employer] Foundation literature. Reference ranges: 60 or greater: Normal 16-59 (for 3 consecutive months): Chronic kidney disease 15 or less: Kidney failure Glucose Level 116 mg/dL 74-118 07/15/2017 5:36am 07/15/2017 7:07am Calcium Level 9.0 mg/dL 8.4-10.2 07/15/2017 5:36am 07/15/2017 7:07am Bedside Glucose 153 mg/dL H 70-120 07/15/2017 3:47pm 07/15/2017 3:54pm Meter ID: [id number] Lactic Acid Level 10.0 MG/DL 4.5-19.8 07/13/2017 7:50pm 07/13/2017 8: 06pm Total Bilirubin 0.4 mg/dL 0.2-1.2 07/13/2017 7:50pm 07/13/2017 8:15pm Aspartate Amino Transf (AST/SGOT) 12 IU/L 5-34 07/13/2017 7:50pm 2017 8:15pm Alanine Aminotransferase (ALT/SGPT) 11 IU/L 0-55 07/13/2017 7:50pm 03/2018 8:15pm Total Protein 6.7 g/dL 6.5-8.1 07/13/2017 7:50pm 07/13/2017 8:15pm Albumin 2.8 g/dL L 3.5-5.0 07/13/2017 7:50pm 07/13/2017 8:15pm Globulin 3.9 g/dL H 2.3-3.5 07/13/2017 7:50pm 07/13/2017 8:15pm Albumin/Globulin Ratio 0.7 L 0.8-2.0 07/13/2017 7:50pm 07/13/2017 8: 15pm Alkaline Phosphatase 75 IU/L 40-150 07/13/2017 7:50pm 07/13/2017 8: 15pm B-Type Natriuretic Peptide 115.7 pg/mL H 0-100 07/13/2017 7:50pm 2017 8:16pm Creatine Kinase 38 IU/L 29-168 07/13/2017 7:50pm 07/13/2017 8:15pm Creatine Kinase MB 0.80 ng/mL 0-5.0 07/13/2017 7:50pm 07/13/2017 8: 20pm Troponin I < 0.001 ng/mL 0-0.300 07/13/2017 7:50pm 07/13/2017 8:20pm Amylase Level 13 U/L L 25-125 07/13/2017 7:50pm 07/13/2017 8:15pm Lipase 4 U/L L 8-78 07/13/2017 7:50pm 07/13/2017 8:15pm Procedures Procedure Status Date Provider(s) Computed tomography of abdomen and pelvis with contrast Active 07/13/17 UGO ABAD MD Encounters Encounter Location Arrival/Admit Date Discharge/Depart Date Attending Provider Discharged Inpatient (obs) [facility] 07/13/17 10:30pm 5:50pm BERTRAND KENNEY MD
== END | disposition home or self-care (01) ==
LOC: OR 07:32
PROVIDERS: ATTEND Internal Medicine Gastroenterology
DX: K22.2 Esophageal obstruction (principal); K29.70 Gastritis, unspecified, without bleeding; K21.9 Gastro-esophageal reflux disease without esophagitis; K44.9 Diaphragmatic hernia without obstruction or gangrene; E11.9 Type 2 diabetes mellitus without complications; I10 Essential (primary) hypertension; R05 Cough; E66.01 Morbid (severe) obesity due to excess calories; Z88.5 Allergy status to narcotic agent; Z88.6 Allergy status to analgesic agent; Z88.8 Allergy status to other drugs, medicaments and biological substances; Z88.0 Allergy status to penicillin; Z79.82 Long term (current) use of aspirin; Z79.4 Long term (current) use of insulin; Z68.38 Body mass index [BMI] 38.0-38.9, adult
CPT/HCPCS: 36415; 43239; 43249; 82948; 88305; 88312; J2250; 43233

== ENCOUNTER 2017-09-05 12:20 | Inpatient (IN) | payer OTHER ==
[~2017-09-05] VITALS: Ht 162.6 cm; Wt 102.5 kg
[~2017-09-05 12:20] MED LIST changes: -FENTANYL CITRATE/PF 100MCG/2 ML INJ ONE; -MIDAZOLAM HCL 2 MG/2 ML VIAL ONE; -PROPOFOL IV EMULSION 10 MG/ML 20 ML VIAL ONE
[2017-09-05 13:33] LABS: BASOPHILS # (AUTO) 0.1 (0.0-0.1); BASOPHILS % 0.5 % (0.0-1.0); EOSINOPHILS % 0.1 % (0.0-6.0); HEMATOCRIT 42.7 % (34.2-44.1); HEMOGLOBIN 14.4 g/dL (12.0-16.0); LYMPHOCYTES # (AUTO) 3.6 (1.0-3.2); LYMPHOCYTES % 21.2 % (18.0-39.1); MEAN CORPUSCULAR HGB CONC 33.7 g/dL (31-35); MEAN CORPUSCULAR VOLUME 91.8 fL (81-99); MONOCYTES # (AUTO) 1.4 (0.2-0.8); MONOCYTES % 8.2 % (4.4-11.3); NEUTROPHILS # (AUTO) 11.8 (2.1-6.9); NEUTROPHILS % 69.4 % (38.7-80.0); PLATELET COUNT 308 x10e3/uL (140-360); RED BLOOD COUNT 4.65 x10e6/uL (3.6-5.1); RED CELL DISTRIBUTION WIDTH 14.8 % (11.7-14.4)
[2017-09-05 13:34] LABS: CLARITY,URINE CLEAR (CLEAR); COLOR,URINE YELLOW (YELLOW); LEUKOCYTE ESTERASE ,URINE TRACE (NEGATIVE); NITRITE,URINE NEGATIVE (NEGATIVE); PROTEIN,URINE DIPSTICK TRACE (NEGATIVE)
[2017-09-05 13:35] LABS: BILIRUBIN,URINE NEGATIVE (NEGATIVE); KETONES,URINE NEGATIVE (NEGATIVE); URINE UROBILINOGEN 0.2 mg/dL (0.2 - 1)
[2017-09-05 13:39] LABS: EPITHELIAL CELLS,URINE FEW /LPF; RBC,URINE 0-5 /HPF (0-5)
[2017-09-05 13:42] LABS: INR 1.1; PROTHROMBIN TIME 13.4 seconds (11.9-14.5)
[2017-09-05 13:43] LABS: PARTIAL THROMBOPLASTIN TIME 27.9 seconds (23.8-35.5)
[2017-09-05 13:52] LABS: ALBUMIN 3.7 g/dL (3.5-5.0); ALBUMIN/GLOBULIN RATIO 0.8 (0.8-2.0); ANION GAP 16.4 mmol/L (8-16); CALCIUM 10.1 mg/dL (8.4-10.2); CREATININE, SERUM 1.23 mg/dL (0.57-1.11); POTASSIUM 4.4 mmol/L (3.5-5.1)
[2017-09-05 13:59] LABS: CREATINE KINASE MB 6.6 ng/mL (0-5.0)
[2017-09-05] MEDS ORDERED: SODIUM CHLORIDE 0.9% 1000ML 1,000 ML IV STA (15:22)
--- NOTE | 2017-09-05 15:58 | Diagnostic Imaging Report ---
PROCEDURE: Frontal and lateral views of the chest. COMPARISON: Patients [facility], DX, CHEST SINGLE (PORTABLE), 07/13/2017, 19:56. INDICATIONS: weakness, shaking FINDINGS: Lines/tubes: None. Lungs: The lungs are well inflated and clear. There is no evidence of pneumonia or pulmonary edema. Pleura: There is no pleural effusion or pneumothorax. Heart and mediastinum: The heart and the mediastinum are normal. Tortuous aorta. Pulmonary vasculature is normal. Bones: No acute bony abnormality. Degenerative disc changes in the thoracic spine. Stable neural stimulator wire. IMPRESSION: 1. No acute cardiopulmonary abnormalities. Alvarado Fall M.D. Dictated by: Alvarado Fall M.D. on 09/05/2017 at 16:00 Electronically approved by: Alvarado Fall M.D. on 09/05/2017 at 16:00
[2017-09-05] MEDS ORDERED: KETOROLAC TROMETHAMINE 30 MG/ML VIAL IV ONE (18:00)
[2017-09-05] MEDS ORDERED: ASPIRIN 325 MG TAB PO ONE (19:30)
[2017-09-05] MEDS: CEFTRIAXONE SOD 1 GM VIAL IV SCH (19:40)
--- NOTE | 2017-09-05 19:55 | Diagnostic Imaging Report ---
History:Slurred speech Comparison studies:None Technique: Axial images were obtained from the skull base to the vertex. Coronal and sagittal images reconstructed from the axial data. Intravenous contrast: None Findings: Scalp/skull: No abnormalities. Extra-axial spaces: No masses. No fluid collections. Brain sulci: Mildly prominent. Ventricles: Mild compensatory dilatation. No hydrocephalus. Parenchyma: Few hypodensities in the supratentorial white matter are small vessel ischemic changes No masses, hemorrhage, acute or chronic cortical vascular insults. Sellar/suprasellar region: No abnormalities. Craniocervical junction: Patent foramen magnum. No Chiari one malformation. Incidental findings: Atherosclerotic calcifications in the carotid siphons and distal vertebral arteries. Impression: No acute abnormalities. Chronic findings: 1. Mild generalized volume loss. 2. Mild supratentorial white matter small vessel ischemic changes Signed by: DR Ramirez Meredith M.D. on 09/05/2017 7:13 PM
[2017-09-05 20:49] VITALS: BP 112/58
[2017-09-05 23:21] VITALS: BP 112/58
[2017-09-05] MEDS: SODIUM CHLORIDE 0.9% 1000ML 1,000 ML IV SCH (23:26)
[2017-09-05 23:31] VITALS: BP 112/58
[2017-09-06] MEDS: MORPHINE SULFATE 2 MG/ML SYR IV PRN ×2 (01:39→08:34)
[2017-09-06] MEDS: ONDANSETRON HCL INJ 2 MG/ML VIAL IV PRN ×2 (01:39→08:34)
[2017-09-06 05:57] LABS: BASOPHILS # (AUTO) 0.1 (0.0-0.1); BASOPHILS % 0.7 % (0.0-1.0); EOSINOPHILS # (AUTO) 0.1 (0.0-0.4); EOSINOPHILS % 1.1 % (0.0-6.0); HEMATOCRIT 36.1 % (34.2-44.1); HEMOGLOBIN 11.7 g/dL (12.0-16.0); LYMPHOCYTES % 30.1 % (18.0-39.1); MEAN CORPUSCULAR HGB CONC 32.4 g/dL (31-35); MEAN CORPUSCULAR VOLUME 95.5 fL (81-99); MONOCYTES # (AUTO) 0.9 (0.2-0.8); NEUTROPHILS # (AUTO) 5.9 (2.1-6.9); NEUTROPHILS % 58.4 % (38.7-80.0); PLATELET COUNT 222 x10e3/uL (140-360); RED BLOOD COUNT 3.78 x10e6/uL (3.6-5.1); RED CELL DISTRIBUTION WIDTH 14.8 % (11.7-14.4)
[2017-09-06] MEDS ORDERED: CYMBALTA60 MG PO (06:14)
[2017-09-06] MEDS ORDERED: CYCLOBENZAPRINE10 MG PO (06:14)
[2017-09-06] MEDS ORDERED: TIZANIDINE HCL4 MG PO (06:14)
[2017-09-06] MEDS ORDERED: PRAVASTATIN SOD20 MG (06:14)
[2017-09-06] MEDS ORDERED: VENTOLIN HFA18 GM BU (06:14)
[2017-09-06 06:28] LABS: ALBUMIN 2.9 g/dL (3.5-5.0); ALBUMIN/GLOBULIN RATIO 0.9 (0.8-2.0); ANION GAP 10.7 mmol/L (8-16); CALCIUM 8.9 mg/dL (8.4-10.2); CREATININE, SERUM 0.99 mg/dL (0.57-1.11); POTASSIUM 4.7 mmol/L (3.5-5.1)
[2017-09-06] MEDS: SODIUM CHLORIDE 0.9% 1000ML 1,000 ML IV SCH ×2 (06:48→11:21)
[2017-09-06 07:00] VITALS: BP 112/58
[2017-09-06] MEDS: CEFTRIAXONE SOD 1 GM VIAL IV SCH (07:40)
[2017-09-06 08:00] VITALS: BP 120/61
[2017-09-06 08:03] VITALS: BP 112/58
[2017-09-06] MEDS ORDERED: ASPIRIN 325 MG TAB EC PO SCH (09:00)
[2017-09-06 12:00] VITALS: BP 175/97
[2017-09-06 12:30] VITALS: BP 142/80
--- NOTE | 2017-11-01 19:27 | History and Physical ---
CHIEF COMPLAINT: Low blood sugar. HISTORY OF PRESENT ILLNESS: Patient is a 76-year-old female who is on multiple insulin treatments. Came in with low blood sugar and experiencing some weakness. The patient is otherwise stable. No chest pain. No shortness of breath. PAST MEDICAL HISTORY: Diabetes type 2 on insulin therapy. Major depression. Chronic lower back pain. Restless leg syndrome. Reflux. History of diabetic neuropathy. HOME MEDICATIONS: He is on insulin treatment, aspirin, albuterol, vitamin D3, Cymbalta, gabapentin, lisinopril, Robaxin, omeprazole, oxycodone, Paxil, pravastatin, temazepam and Flexeril. PAST SURGICAL HISTORY: Noncontributory. Hiatal hernia repair. Low back surgery. Knee surgery. SOCIAL HISTORY: Patient does not smoke or use alcohol. No recreational drugs. ALLERGIES: NO KNOWN DRUG ALLERGIES. PHYSICAL EXAMINATION: GENERAL: The patient is not in acute distress, totally awake, alert and oriented. VITAL SIGNS: Temperature is 98. Blood pressure 110/62. Pulse 80. Respiration 18 HEENT: Normocephalic, atraumatic and anicteric. NECK: Supple grossly. PULMONARY: Clear. CARDIOVASCULAR: Regular rate and rhythm. ABDOMEN: Soft and unremarkable. EXTREMITIES: No cyanosis or edema. NEUROLOGIC: No focal deficit. LABORATORY: Otherwise unremarkable. IMPRESSION: 1. Hypoglycemia. 2. Multiple chronic baseline problems. PLAN: Continue with home medication. Decrease amount of insulin per patient. Follow up with family doctor and roll picker for management of diabetes. The patient is otherwise stable. She is asymptomatic. Job#: [id number]
--- NOTE | 2017-11-01 21:37 | Discharge Summary ---
FINAL DIAGNOSES: Hypoglycemia. SUMMARY: Patient is a 76-year-old female with episode of hypoglycemia. The patient was stable. No further workup needed. Advised the patient to watch her blood sugar on her diabetic treatment. Patient expressed understanding. She is stable. No symptoms. Discharged home. Follow up with family physician as an outpatient. Job#: [id number] CQ
== END 2017-09-06 14:23 | disposition home health service (06) | DRG 638 ==
LOC: ER 12:20 → ERHOLD 20:12 → MED/SURG2 20:19
PROVIDERS: ADMIT Internal Medicine; ATTEND Internal Medicine
DX: E11.649 Type 2 diabetes mellitus with hypoglycemia without coma (principal); N39.0 Urinary tract infection, site not specified; I10 Essential (primary) hypertension; G25.81 Restless legs syndrome; E86.0 Dehydration; Z79.4 Long term (current) use of insulin; Z79.899 Other long term (current) drug therapy
CPT/HCPCS: 36415; 70450; 71046; 80053; 81001; 82550; 82553; 82948; 83605; 84484; 85025; 85610; 85730; 93005; 99284; J0696; J1885; J2270; J2405; J7030

== ENCOUNTER 2018-11-18 15:25 | Emergency (ER) | payer OTHER ==
[~2018-11-18] VITALS: Ht 162.6 cm; Wt 102.5 kg
[~2018-11-18 15:25] MED LIST changes: +CYMBALTA60 MG PO; +PRAVASTATIN SOD20 MG; +TIZANIDINE HCL4 MG PO; +VENTOLIN HFA18 GM BU
[2018-11-18] MEDS ORDERED: HYDROCODONE/APAP 5MG-325MG TAB PO ONE (19:30)
--- NOTE | 2018-11-18 19:50 | NUR ---
GORE INSERTER NOTIFIED TO CALL OUT FOR DOPPLER.
--- NOTE | 2018-11-18 20:23 | Diagnostic Imaging Report ---
LEFT ANKLE - 3 Image(s) HISTORY: Pain, swelling COMPARISON: None available. FINDINGS: Sensitivity limited by portable technique. Bones: No acute displaced fracture. No aggressive osseous lesion. Small dorsal calcaneal enthesophyte. Joints: Osseous alignment is within normal limits and the joint spaces are well-maintained. Soft tissues: Dystrophic calcifications along the expected course of the Achilles tendon and plantar fascia. Nonspecific medial predominant soft tissue swelling. IMPRESSION: 1. Nonspecific soft tissue swelling. 2. Chronic Achilles tendinopathy and likely remote plantar fascial injury. Signed by: Dr. Ronaldo Rsahid D.O., M.M.M. on 11/18/2018 8:19 PM
[2018-11-18 21:56] LABS: BASOPHILS # (AUTO) 0.1 (0.0-0.1); BASOPHILS % 0.6 % (0.0-1.0); EOSINOPHILS # (AUTO) 0.3 (0.0-0.4); EOSINOPHILS % 2.6 % (0.0-6.0); HEMATOCRIT 36.8 % (34.2-44.1); HEMOGLOBIN 12.5 g/dL (12.0-16.0); LYMPHOCYTES % 28.1 % (18.0-39.1); MEAN CORPUSCULAR HEMOGLOBIN 32.8 pg (28-32); MEAN CORPUSCULAR VOLUME 96.6 fL (81-99); MONOCYTES # (AUTO) 0.7 (0.2-0.8); MONOCYTES % 6.4 % (4.4-11.3); NEUTROPHILS # (AUTO) 6.7 (2.1-6.9); NEUTROPHILS % 61.6 % (38.7-80.0); PLATELET COUNT 189 x10e3/uL (140-360); RED BLOOD COUNT 3.81 x10e6/uL (3.6-5.1); RED CELL DISTRIBUTION WIDTH 15.6 % (11.7-14.4)
[2018-11-18 22:04] LABS: INR 0.92; PROTHROMBIN TIME 12.8 seconds (11.9-14.5)
[2018-11-18 22:05] LABS: PARTIAL THROMBOPLASTIN TIME 25.4 seconds (23.8-35.5)
[2018-11-18 22:14] LABS: ALANINE AMINOTRANSFERASE 16 IU/L (0-55); ALBUMIN 2.9 g/dL (3.5-5.0); ALBUMIN/GLOBULIN RATIO 0.8 (0.8-2.0); ALKALINE PHOSPHATASE 58 IU/L (40-150); ANION GAP 13.8 mmol/L (8-16); BLOOD UREA NITROGEN 20 mg/dL (7-26); BUN/CREATININE RATIO 24 (6-25); CARBON DIOXIDE 29 mmol/L (22-29); CHLORIDE 100 mmol/L (98-107); CREATININE, SERUM 0.84 mg/dL (0.57-1.11); EST GLOMERULAR FILTRATION RATE > 60 ML/MIN (60-); GLUCOSE 127 mg/dL (74-118); POTASSIUM 3.8 mmol/L (3.5-5.1); SODIUM 139 mmol/L (136-145)
[2018-11-18] MEDS ORDERED: RIVAROXABAN 15 MG TABLET PO STA (22:40)
[2018-11-18 22:56] LABS: CALCIUM 9.4 mg/dL (8.4-10.2)
[2018-11-18 23:13] VITALS: BP 147/84
== END 2018-11-18 23:15 | disposition home or self-care (01) ==
LOC: ER 15:25
DX: M79.605 Pain in left leg (principal); M79.89 Other specified soft tissue disorders; I82.442 Acute embolism and thrombosis of left tibial vein; I10 Essential (primary) hypertension; E11.9 Type 2 diabetes mellitus without complications; K21.9 Gastro-esophageal reflux disease without esophagitis
CPT/HCPCS: 36415; 80053; 85025; 85610; 85730; 93971; 99284

== ENCOUNTER 2019-06-10 15:06 | Emergency (ER) | payer OTHER ==
[~2019-06-10] VITALS: Ht 162.6 cm; Wt 102.5 kg
[2019-06-10] MEDS ORDERED: PANTOPRAZOLE 40 MG 10ML VIAL IV STA (15:34)
[2019-06-10] MEDS ORDERED: SODIUM CHLORIDE 0.9% 1000ML 1,000 ML IV STA (15:34)
[2019-06-10] MEDS ORDERED: ONDANSETRON HCL INJ 2MG/ML 2ML 2 MG/ML VIAL IV STA (15:34)
[2019-06-10 16:20] LABS: CLARITY,URINE SL CLOUDY (CLEAR); COLOR,URINE YELLOW (YELLOW); LEUKOCYTE ESTERASE ,URINE TRACE (NEGATIVE); NITRITE,URINE NEGATIVE (NEGATIVE); PROTEIN,URINE DIPSTICK TRACE (NEGATIVE)
[2019-06-10 16:21] LABS: BILIRUBIN,URINE 1+ (NEGATIVE); KETONES,URINE NEGATIVE (NEGATIVE); URINE UROBILINOGEN 0.2 mg/dL (0.2 - 1)
[2019-06-10 16:24] LABS: EPITHELIAL CELLS,URINE RARE /LPF; WBC,URINE (MAN) 0-5 /HPF (0-5)
[2019-06-10 16:45] LABS: BASOPHILS # (AUTO) 0.1 (0.0-0.1); BASOPHILS % 0.9 % (0.0-1.0); EOSINOPHILS # (AUTO) 0.3 (0.0-0.4); HEMATOCRIT 39.5 % (34.2-44.1); HEMOGLOBIN 12.9 g/dL (12.0-16.0); LYMPHOCYTES # (AUTO) 2.5 (1.0-3.2); LYMPHOCYTES % 32.9 % (18.0-39.1); MEAN CORPUSCULAR HEMOGLOBIN 31.7 pg (28-32); MEAN CORPUSCULAR HGB CONC 32.7 g/dL (31-35); MEAN CORPUSCULAR VOLUME 97.1 fL (81-99); MONOCYTES # (AUTO) 0.7 (0.2-0.8); MONOCYTES % 9.6 % (4.4-11.3); NEUTROPHILS % 52.2 % (38.7-80.0); PLATELET COUNT 188 x10e3/uL (140-360); RED BLOOD COUNT 4.07 x10e6/uL (3.6-5.1)
[2019-06-10 16:57] LABS: INR 0.93
[2019-06-10 16:58] LABS: PARTIAL THROMBOPLASTIN TIME 29.3 seconds (23.8-35.5)
[2019-06-10 17:20] LABS: ALANINE AMINOTRANSFERASE 11 IU/L (0-55); ALBUMIN 3.4 g/dL (3.5-5.0); ALBUMIN/GLOBULIN RATIO 0.9 (0.8-2.0); ALKALINE PHOSPHATASE 71 IU/L (40-150); BLOOD UREA NITROGEN 20 mg/dL (7-26); BUN/CREATININE RATIO 19 (6-25); CALCIUM 9.3 mg/dL (8.4-10.2); CARBON DIOXIDE 28 mmol/L (22-29); CHLORIDE 105 mmol/L (98-107); CREATINE KINASE 61 IU/L (29-168); CREATININE, SERUM 1.03 mg/dL (0.57-1.11); EST GLOMERULAR FILTRATION RATE 52 ML/MIN (60-); GLUCOSE 111 mg/dL (74-118); LIPASE 6 U/L (8-78); MAGNESIUM 1.6 MG/DL (1.3-2.1); SODIUM 141 mmol/L (136-145)
--- NOTE | 2019-06-10 19:47 | Diagnostic Imaging Report ---
EXAMINATION: CHEST SINGLE (PORTABLE) COMPARISON: Chest x-ray 07/13/2017 INDICATION: Vomiting, abdominal pain ^ABD PAIN DISCUSSION: Frontal view of the chest obtained at 1929 hours. HEART AND MEDIASTINUM: The heart is normal in size. There is a small hiatal hernia. LINES: None. LUNGS: The lungs are well inflated and clear. No pneumonia or pulmonary edema. PLEURA: No pleural effusion or pneumothorax. BONES AND SOFT TISSUES: No focal osseous lesion. The soft tissues are normal. IMPRESSION: No acute cardiopulmonary disease. Small hiatal hernia. Signed by: Dr. Liliam Win MD on 06/10/2019 7:44 PM
--- NOTE | 2019-06-10 20:00 | Diagnostic Imaging Report ---
CT Abdomen And Pelvis with Intravenous Contrast INDICATION: Nausea/vomiting, epigastric pain ^INEZ ABD PAIN ^[id number] ^1800 TECHNIQUE: Thin collimation axial images obtained from the diaphragm to the level of the pubic symphysis following the uneventful administration of 100 cc of low osmolar, nonionic intravenous contrast. Dose reduction techniques used: Automated exposure control, adjustment of the mAs and/or kVp according to patient size, standardized low-dose protocol, and/or iterative reconstruction technique. RADIATION DOSE: Total DLP: 752.87 mGy*cm Estimated effective dose: (DLP x 0.015 x size factor) mSv CTDIvol has been reviewed. It is below the limits set by the Radiation Protocol Committee (RPC). COMPARISON: CT abdomen/pelvis 07/13/2017. ABDOMEN FINDINGS: Lung Bases: Moderate sized hiatal hernia with stable surgical clips at the GE junction. Trace left basilar atelectasis. Descending thoracic aorta is tortuous. Liver: Normal attenuation. No evidence for mass. Gallbladder: Absent. There is diffuse intrahepatic and hepatic bile dilatation. The common bile duct measures 13 mm in diameter without intraluminal filling defect. Previously, the common bile duct measured 13 mm. Pancreas: Atrophic. No mass or ductal dilatation. Spleen: Normal in size. No evidence of mass.. Adrenal Glands: No evidence for mass. Kidneys: Right: Mildly atrophic. There are cysts in the upper and lower poles measuring up to 2 cm. The upper pole cyst may have a few enhancing septations. No calculus. No hydronephrosis. Left: Normal enhancement. No soft tissue mass. No hydronephrosis. Lymph Nodes: No lymphadenopathy. Aorta: Diffusely calcified and tortuous. No aneurysmal dilatation. 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 PELVIS FINDINGS: Bowel: Stomach: Collapsed. Small Bowel: Periampullary duodenal diverticulum measures 3.7 cm. Remainder of the small bowel is normal in diameter with normal wall thickness. Large Bowel: There is enteric contrast in the sigmoid colon and rectum mixed with stool. There are diverticula throughout the descending colon and sigmoid colon without associated inflammation. No large bowel dilatation. No significant stool burden. Appendix: Not visualized. Bladder: Normal. The uterus is absent. No adnexal mass Peritoneum/retroperitoneum: No free fluid or fluid collection. Bones: S-shaped scoliosis of the thoracolumbar spine with moderate degenerative changes. The patient is status post laminectomy from L3 to S1. There is a spinal stimulator pack in the posterior left pelvis. The tubing is in the lower chest, outside the [id number]. Soft tissues: Midline abdominal hernia mesh is redemonstrated. No hernia recurrence. IMPRESSION: 1. Stable moderate-sized hiatal hernia. Stable postoperative changes of the GE junction. 2. Diverticulosis coli. No evidence for bowel obstruction or inflammation. Nonvisualization of the appendix, if present. 3. Status post cholecystectomy and hysterectomy. 4. Stable intrahepatic and intrahepatic bile duct dilatation. This may be secondary to a periampullary duodenal diverticulum and postoperative reservoir effect. No CT evidence of choledocholithiasis. 5. Stable postoperative changes of the spine with spinal stimulator. 6. Cyst in the upper pole of the right kidney may contain septations. Recommend confirmation with renal ultrasound. This can be performed on an outpatient basis. Signed by: Dr. Liliam Win MD on 06/10/2019 7:58 PM
[2019-06-10] MEDS ORDERED: IOPAMIDOL 370 MG/ML 200 ML INFUS..BTL INJ ONE (22:29)
[2019-06-10] MEDS ORDERED: SODIUM CHLORIDE 0.9% 50ML 50 ML ONE (22:29)
== END 2019-06-10 20:35 | disposition home or self-care (01) ==
LOC: ER 15:06
DX: R10.13 Epigastric pain (principal); R11.2 Nausea with vomiting, unspecified; K44.9 Diaphragmatic hernia without obstruction or gangrene; K57.90 Diverticulosis of intestine, part unspecified, without perforation or abscess without bleeding
CPT/HCPCS: 36415; 71045; 74177; 80053; 81001; 82550; 82553; 83690; 83735; 83880; 84484; 85025; 85610; 85730; 87086; 99284; C9113; J2405; J7030; Q9967